=== PATIENT | female | born 1995 | race Two or more races ===

== ENCOUNTER → 2019-01-27 | Outpatient (CLI) | payer OTHER ==
--- NOTE | 2019-01-27 09:01 | RAD ---
ABDOMEN COMPLETE History: Elevated liver enzymes Comparison: None. Findings: Multiple sonographic images of the abdomen are submitted. Pancreas is not well-visualized due to bowel gas, no abnormality of the visualized portion of the pancreatic head and proximal body. Abdominal aortic caliber is within normal limits up to 1.4 cm. There is segmental visualization of the inferior vena cava. There has been cholecystectomy. Common bile duct is within normal limits about 0.3 cm. Right lobe of the liver measured 14.9 cm longitudinal. Hepatic echotexture is considered within normal limits. No focal hepatic lesion is demonstrated. Right kidney measured 9.6 x 5.1 x 4.1 cm. Left kidney measured 10 x 5 x 4 cm, no hydronephrosis. Spleen measured up to 8.2 cm. Impression: 1. No significant abnormality is demonstrated, pancreas incompletely visualized. There has been cholecystectomy. Electronically signed by: Don Bajwa MD (01/27/2019 8:58 AM) [id number]
== END | disposition home or self-care (01) ==
LOC: US 07:49 → EDBD 07:49
PROVIDERS: ATTEND Internal Medicine Gastroenterology
DX: R79.89 Other specified abnormal findings of blood chemistry (principal); Z90.49 Acquired absence of other specified parts of digestive tract
CPT/HCPCS: 76700

== ENCOUNTER 2019-04-17 14:08 | Emergency (ER) | payer OTHER ==
[~2019-04-17] VITALS: Ht 152.4 cm; Wt 63.0 kg
[2019-04-17 14:08] VITALS: BP 129/79
[2019-04-17 15:16] LABS: BASO % 1 % (0-3); EOS # 0.2 x10^3/uL (0.0-0.7); EOS % 2 % (0-3); LYMPH # 2.4 x10^3/uL (1.0-4.8); LYMPH % 32 % (24-48); MEAN CORPUSCULAR HEMOGLOBIN 31 pg (25-35); MEAN CORPUSCULAR HGB CONC 34 g/dL (31-37); MEAN CORPUSCULAR VOLUME 90 fL (79-100); MONO # 0.6 x10^3/uL (0.0-1.1); MONO % 7 % (0-9); NEUT # 4.3 x10^3uL (1.8-7.7); NEUT % 58 % (31-73); PLATELET COUNT 256 x10^3/uL (140-400); RED CELL DISTRIBUTION WIDTH 12.6 % (11.5-14.5); WHITE BLOOD COUNT 7.5 x10^3/uL (4.0-11.0)
--- NOTE | 2019-04-17 16:56 | ED.ADGEN ---
Past History Past Medical History: No Pertinent History Past Surgical History: No Surgical History Alcohol Use: None Drug Use: None Adult General Chief Complaint Chief Complaint Vaginal bleeding in early HPI HPI Patient is a G2, P1 estimated 6-8 week estimated gestation female who presents with pelvic cramping and vaginal bleeding. Patient reports pelvic cramping yesterday passage of a small dime-sized clot early this morning. Patient reports persistent spotting with wiping today.Reports morning sickness but otherwise has not had complications with currenPertinent C.Patient has not yet established with a local METER INSTALLER. Reports post preeclampsia with first Denies nausea vomiting, flank pain. Denies dizziness lightheadedness, chest pain pain and shortness of breath. she was last menstrual period was approximately 10 weeks ago.no other acute symptoms or complaints. .[] Review of Systems Review of Systems Review symptoms as per history of present illness. All other review symptoms are negative. All other systems were reviewed and found to be within normal limits, except as documented in this note. Allergies Allergies Allergies Coded Allergies Type Severity Reaction Last Updated Verified azithromycin Allergy Unknown 04/17/19 Yes iodine Allergy Unknown 04/17/19 Yes Physical Exam Physical Exam Constitutional: Well developed, well nourished, no acute distress, non-toxic appearance. [] HENT: Normocephalic, atraumatic, bilateral external ears normal, oropharynx moist, no oral exudates, nose normal. [] Eyes: PERRLA, EOMI, conjunctiva normal, no discharge. [] Neck: Normal range of motion, no tenderness, supple, no stridor. [] Cardiovascular:Heart rate regular rhythm, no murmur [] Lungs & Thorax: Bilateral breath sounds clear to auscultation [] Abdomen: Bowel sounds normal, soft, no tenderness. [] Neurologic: Alert and oriented X 3, normal motor function, normal sensory function, no focal deficits noted. [] Psychologic: Affect normal, judgement normal, mood normal. [] Current Patient Data Vital Signs Vital Signs Date Time Temp Pulse Resp B/P (MAP) Pulse Ox O2 Delivery O2 Flow Rate FiO2 04/17/19 14:08 98.7 85 16 100 Room Air Lab Results Laboratory Tests Test 04/17/19 14:53 White Blood Count 7.5 x10^3/uL (4.0-11.0) Red Blood Count 4.90 x10^6/uL (3.50-5.40) Hemoglobin 15.0 g/dL (12.0-15.5) Hematocrit 44.0 % (36.0-47.0) Mean Corpuscular Volume 90 fL (79-100) Mean Corpuscular Hemoglobin 31 pg (25-35) Mean Corpuscular Hemoglobin Concent 34 g/dL (31-37) Red Cell Distribution Width 12.6 % (11.5-14.5) Platelet Count 256 x10^3/uL (140-400) Neutrophils (%) (Auto) 58 % (31-73) Lymphocytes (%) (Auto) 32 % (24-48) Monocytes (%) (Auto) 7 % (0-9) Eosinophils (%) (Auto) 2 % (0-3) Basophils (%) (Auto) 1 % (0-3) Neutrophils # (Auto) 4.3 x10^3uL (1.8-7.7) Lymphocytes # (Auto) 2.4 x10^3/uL (1.0-4.8) Monocytes # (Auto) 0.6 x10^3/uL (0.0-1.1) Eosinophils # (Auto) 0.2 x10^3/uL (0.0-0.7) Basophils # (Auto) 0.0 x10^3/uL (0.0-0.2) Maternal Serum HCG Beta Subunit 69153 mIU/mL (0-6) H EKG EKG [] Radiology/Procedures Radiology/Procedures [OB ultrasound: Subchorionic hemorrhage measuring 2.4 x 0.8 x 1.7 cm. Live 8 week 3 day intrauterine per radiology report] Course & Med Decision Making Course & Med Decision Making Pertinent Labs and Imaging studies reviewed. (See chart for details) [Vaginal bleeding in early secondary to subchorionic hemorrhage. Viable IUP noted on ultrasound. Patient is a positive minimally symptomatic in the ED. Recommendations are pelvic rest and [facility]ER INSTALLER follow-up. Patient verbalizes understanding agreement discharge instructions prior to departure.] Final Impression Final Impression [1 vaginal bleeding in early 2. Subchorionic hemorrhage] Dragon Disclaimer Dragon Disclaimer This electronic medical record was generated, in whole or in part, using a voice recognition dictation system. AUGUST THOMAS DO Apr 17, 2019 16:56
--- NOTE | 2019-04-17 16:59 | RAD ---
Exam: Ultrasound OB less than 14 weeks Indication: Vaginal bleeding Technique: Real-time grayscale and color Doppler images of the pelvis were obtained by the department drop board worker. Comparisons: None FINDINGS: Uterus measures 12.4 x 8.0 x 4.6 cm. Within the uterus there is a weston live intrauterine gestation with crown-rump length measured at 2.0 cm corresponding to 8 weeks 4 days gestation. heart rate is measured at 1 73 bpm. There is a small subchorionic hemorrhage. Right ovary measures 2.9 x 1.6 x 1.8 cm. Left ovary measures 2.9 x 2.3 x 1.9 cm. Vascular flow identified within the ovaries bilaterally. IMPRESSION: 1. Single live intrauterine gestation of 8 weeks 3 days by today's ultrasound discordant with LMP. Estimated due date by ultrasound is 11/24/2019 2. Small subchorionic hemorrhage noted. 3. Dedicated survey is recommended at 18-20 weeks. Electronically signed by: Eva Cortez MD (04/17/2019 4:56 PM) [id number]
== END 2019-04-17 17:02 | disposition home or self-care (01) ==
LOC: ER 14:08
DX: O46.8X1 Other antepartum hemorrhage, first trimester (principal); Z3A.08 8 weeks gestation of pregnancy; Z88.1 Allergy status to other antibiotic agents; Z88.8 Allergy status to other drugs, medicaments and biological substances
CPT/HCPCS: 36415; 76801; 84702; 85025; 86900; 86901; 99285